=== PATIENT | female | born 1940 | race Caucasian/White ===

== ENCOUNTER 2025-01-11 09:56 | Day surgery (SDC) | payer MEDICARE ==
[2025-01-10 14:28] VITALS: BMI 25.0
[2025-01-11] MEDS ORDERED: Tranexamic Acid 1,000 MG/10 ML VIAL ONE (11:01)
[2025-01-11] MEDS ORDERED: CEFAZOLIN 2 GM VIAL ONE (11:02)
[2025-01-11] MEDS ORDERED: Heparin 5,000 UNITS/ML VIAL ONE (11:02)
[2025-01-11] MEDS ORDERED: PROPOFOL 20 ML ONE (11:25)
[2025-01-11] MEDS ORDERED: Lidocaine 1% PF 5 ML VIAL ONE (11:27)
[2025-01-11] MEDS ORDERED: Bupivacaine 0.25% HCL 30 ML VIAL ONE (11:52)
[2025-01-11] MEDS ORDERED: PHENYLEPHRINE-NS 100 MCG/ML 10 ML SYRINGE ONE (13:05)
[2025-01-11] MEDS ORDERED: Ondansetron PF 4 MG/2 ML Vial ONE (13:05)
== END 2025-01-11 16:54 | disposition home or self-care (01) ==
LOC: SDC 09:56
PROVIDERS: ATTEND Plastic Surgery
PROC: 0HPU0JZ Removal of Synthetic Substitute from Left Breast, Open Approach (ICD-10-PCS; principal; 2025-01-11)
PROC: 0HPT0JZ Removal of Synthetic Substitute from Right Breast, Open Approach (ICD-10-PCS; 2025-01-11)
DX: T85.44XA Capsular contracture of breast implant, initial encounter (principal); Z96.649 Presence of unspecified artificial hip joint; Y83.1 Surgical operation with implant of artificial internal device as the cause of abnormal reaction of the patient, or of later complication, without mention of misadventure at the time of the procedure
CPT/HCPCS: 19371; 93005; J0169; J0665; J1644; J2272; J2405; J2704; J3010; 88304; 93010; J1580; J3373